=== PATIENT | female | born 1980 | race Caucasian/White ===

== ENCOUNTER 2017-06-18 12:45 | Emergency (ER) | payer MEDICARE, MEDICAID, SELFPAY | END 2017-06-18 14:36 | disposition home or self-care (01) | DX: H10.33 Unspecified acute conjunctivitis, bilateral (principal); J40 Bronchitis, not specified as acute or chronic; H66.001 Acute suppurative otitis media without spontaneous rupture of ear drum, right ear; Z88.0 Allergy status to penicillin | CPT/HCPCS: 71020; 99201 ==

== ENCOUNTER → 2018-07-21 17:49 | Outpatient (CLI) | payer MEDICARE, MEDICAID, SELFPAY ==
[2018-07-21 18:45] LABS: Basophils # 0.1 K/mm3 (0-0.2); Basophils % 0.6 % (0.1-2.0); Eosinophils # 0.2 K/mm3 (0.0-0.4); Eosinophils % 1.9 % (0.1-12.0); Hematocrit 40.4 % (37.0-47.0); Hemoglobin 12.3 g/dL (12.2-16.2); Lymphocytes % 31.4 % (10-50); Mean Corpuscular HGB Conc 30.4 g/dL (31.8-35.4); Mean Corpuscular Hemoglobin 26.1 pg (27.0-31.2); Mean Corpuscular Volume 85.8 fl (81-99); Mean Platelet Volume 9.3 fl (7.4-10.4); Monocytes # 0.4 K/mm3 (0.1-1.0); Neutrophils # 5.9 K/mm3 (1.8-7.8); Neutrophils % 62.1 % (37.0-80.0); Platelet Count 349 K/mm3 (142-424); Red Blood Count 4.72 M/mm3 (4.20-5.40); Red Cell Distribution Width 16.9 % (11.5-17.5); White Blood Count 9.5 K/mm3 (4.8-10.8)
[2018-07-21 18:50] LABS: Alanine Aminotransferase 18 U/L (12-78); Albumin Level 3.9 gm/dL (3.4-5.0); Albumin/Globulin Ratio 1.2 (1.1-1.8); Alkaline Phosphatase 109 U/L (46-116); Anion Gap 13.6 mEq/L (5-15); Aspartate Amino Transferase 12 U/L (15-37); Bilirubin,Total 0.2 mg/dL (0.2-1.0); Blood Urea Nitrogen 4 mg/dL (7-18); Calcium 8.8 mg/dL (8.5-10.1); Carbon Dioxide 28 mmol/L (21.0-32.0); Chloride 104 mmol/L (98-107); Chol/HDL Ratio 4.6 (1-3.5); Cholesterol 206 mg/dL (140-200); Creatinine,Serum 0.68 mg/dL (0.55-1.02); Estimated Glomerular Filt Rate 97 ml/min (>60); Free T4 (Free Thyroxine) 0.93 ng/dl (0.76-1.46); GFR (African American) 117 ML/MIN (>60); Globulin 3.3 gm/dl (1.3-3.2); Glucose 94 mg/dL (74-106); HDL Cholesterol 45 mg/dL (29-89); LDL Cholesterol 130 mg/dL (0-130); Potassium 3.6 mmoL/L (3.5-5.1); Sodium 142 mmol/L (136-145); Thyroid Stimulating Hormone 0.75 uIU/ml (0.358-3.740); Total Protein,Serum 7.2 gm/dL (6.4-8.2); Triglycerides 157 mg/dL (30-200); VLDL Cholesterol 31 mg/dL (0-40)
[2018-07-21 19:54] LABS: Amphetamine/Metha Screen,Urine Negative ng/mL (<1000); Barbiturates Screen,Urine Negative ng/mL (<200); Benzodiazepines Screen,Urine Negative ng/mL (<200); Cannabinoid Screen,Urine Negative ng/mL (<50); Cocaine Screen,Urine Negative ng/mL (<300); Methadone Screen,Urine Negative ng/mL (<300); Opiate Screen,Urine Negative ng/mL (<300); Phencyclidine Screen,Urine Negative ng/mL (<25)
[2018-07-24 08:22] LABS: Vitamin D 25 Hydroxy 15.5 ng/mL (30.0-100.0)
== END ==
PROVIDERS: Visit Provider Emergency Medicine
DX: R45.86 Emotional lability (principal); E78.49 Other hyperlipidemia; Z79.899 Other long term (current) drug therapy
CPT/HCPCS: 80053; 80061; 80305; 82652; 84439; 84443; 85025

== ENCOUNTER → 2018-08-04 07:52 | Outpatient (CLI) | payer MEDICARE, MEDICAID, SELFPAY ==
--- NOTE | 2018-08-04 07:54 | MR_ITS ---
MR lumbar spine wo con, MR 3-d myelogram/MRCP HISTORY: No back pain with bilateral leg pain and numbnessITS.REASON: back pain ORDERING PHYSICIAN: Vasiliy Vyas MD PATIENT AGE: 37 years Comparison: None TECHNIQUE: Standard multiplanar multiecho sequences are performed without contrast. 3-D MIP and myelographic images are also rendered and reviewed FINDINGS: There is normal alignment. The spinal cord ends at the L1 level. L1-L2, L2-L3 have an unremarkable appearance. L3-L4: There is mild concentric bulging disc L3-L4 there is mild bilateral lateral recess narrowing from bulging disc and mild facet and ligamentum hypertrophy L4-5: Mild broad-based bulging disc slightly eccentric toward the right with mild right-sided foraminal narrowing. L5-S1: Mild concentric bulging disc with minimal left paracentral disc protrusion the disc does abut the anteromedial aspect of both S1 nerve roots left more so than right without nerve root displacement. There is mild degenerative disc disease at this level. IMPRESSION 1. L3-L4: There is mild concentric bulging disc L3-L4 there is mild bilateral lateral recess narrowing from bulging disc and mild facet and ligamentum hypertrophy with mild degenerative disc disease 2. L4-5: Mild broad-based bulging disc slightly eccentric toward the right with mild right-sided foraminal narrowing with mild degenerative disc disease 3. L5-S1: Mild concentric bulging disc with minimal left paracentral disc protrusion the disc does abut the anteromedial aspect of both S1 nerve roots left more so than right without nerve root displacement. There is mild degenerative disc disease at this level 4. No extruded herniated disc or canal stenosis
== END ==
PROVIDERS: PCP Emergency Medicine; Visit Provider Emergency Medicine
DX: M54.9 Dorsalgia, unspecified (principal); M54.5 Low back pain
CPT/HCPCS: 72148; 76376; 80305

== ENCOUNTER → 2018-08-04 14:35 | Outpatient (CLI) | payer MEDICARE, MEDICAID, SELFPAY ==
[2018-08-04 15:36] LABS: Amphetamine/Metha Screen,Urine Negative ng/mL (<1000); Barbiturates Screen,Urine Negative ng/mL (<200); Benzodiazepines Screen,Urine Negative ng/mL (<200); Cannabinoid Screen,Urine Negative ng/mL (<50); Cocaine Screen,Urine Negative ng/mL (<300); Methadone Screen,Urine Negative ng/mL (<300); Opiate Screen,Urine Positive ng/mL (<300); Phencyclidine Screen,Urine Negative ng/mL (<25)
== END ==
PROVIDERS: Visit Provider Nurse Practitioner Family
DX: Z79.899 Other long term (current) drug therapy (principal)
CPT/HCPCS: 80305

== ENCOUNTER → 2018-09-15 13:24 | Outpatient (CLI) | payer MEDICARE, MEDICAID, SELFPAY ==
[2018-09-15 14:21] LABS: Amphetamine/Metha Screen,Urine Negative ng/mL (<1000); Barbiturates Screen,Urine Negative ng/mL (<200); Benzodiazepines Screen,Urine Negative ng/mL (<200); Cannabinoid Screen,Urine Negative ng/mL (<50); Cocaine Screen,Urine Negative ng/mL (<300); Methadone Screen,Urine Negative ng/mL (<300); Opiate Screen,Urine Positive ng/mL (<300); Phencyclidine Screen,Urine Negative ng/mL (<25)
== END ==
PROVIDERS: Visit Provider Emergency Medicine
DX: M51.36 Other intervertebral disc degeneration, lumbar region (principal)
CPT/HCPCS: 80305

== ENCOUNTER → 2018-09-21 14:07 | Outpatient (POV) | payer MEDICARE, MEDICAID, SELFPAY | PROVIDERS: Visit Provider Neurological Surgery | DX: Z00.00 Encounter for general adult medical examination without abnormal findings (principal) ==

== ENCOUNTER → 2018-11-14 14:15 | Outpatient (CLI) | payer MEDICARE, MEDICAID, SELFPAY ==
[2018-11-14 16:02] LABS: Amphetamine/Metha Screen,Urine Negative ng/mL (<1000); Barbiturates Screen,Urine Negative ng/mL (<200); Benzodiazepines Screen,Urine Negative ng/mL (<200); Cannabinoid Screen,Urine Negative ng/mL (<50); Cocaine Screen,Urine Negative ng/mL (<300); Methadone Screen,Urine Negative ng/mL (<300); Opiate Screen,Urine Negative ng/mL (<300); Phencyclidine Screen,Urine Negative ng/mL (<25)
[2018-11-22 10:05] LABS: Opiates Negative ng/mL (Cutoff=100)
== END ==
PROVIDERS: Visit Provider Emergency Medicine
DX: Z79.899 Other long term (current) drug therapy (principal)
CPT/HCPCS: 80305; 80361; G0480

== ENCOUNTER → 2019-01-17 18:04 | Outpatient (CLI) | payer MEDICARE, MEDICAID, SELFPAY ==
[2019-01-17 19:07] LABS: Amphetamine/Metha Screen,Urine Negative ng/mL (<1000); Barbiturates Screen,Urine Negative ng/mL (<200); Benzodiazepines Screen,Urine Negative ng/mL (<200); Cannabinoid Screen,Urine Negative ng/mL (<50); Cocaine Screen,Urine Negative ng/mL (<300); Methadone Screen,Urine Negative ng/mL (<300); Opiate Screen,Urine Negative ng/mL (<300); Phencyclidine Screen,Urine Negative ng/mL (<25)
[2019-01-25 08:15] LABS: Opiates Negative (Cutoff=100)
== END ==
PROVIDERS: Visit Provider Emergency Medicine
DX: M51.36 Other intervertebral disc degeneration, lumbar region (principal); Z79.899 Other long term (current) drug therapy
CPT/HCPCS: 80305; 80361; 80365; G0480

== ENCOUNTER → 2019-03-07 17:55 | Outpatient (CLI) | payer MEDICARE, MEDICAID, SELFPAY ==
[2019-03-07 19:58] LABS: Amphetamine/Metha Screen,Urine Negative ng/mL (<1000); Barbiturates Screen,Urine Negative ng/mL (<200); Benzodiazepines Screen,Urine Negative ng/mL (<200); Cannabinoid Screen,Urine Negative ng/mL (<50); Cocaine Screen,Urine Negative ng/mL (<300); Methadone Screen,Urine Negative ng/mL (<300); Opiate Screen,Urine Positive ng/mL (<300); Phencyclidine Screen,Urine Negative ng/mL (<25)
== END ==
PROVIDERS: Visit Provider Emergency Medicine
DX: M51.36 Other intervertebral disc degeneration, lumbar region (principal)
CPT/HCPCS: 80305

== ENCOUNTER → 2019-05-02 18:07 | Outpatient (CLI) | payer MEDICARE, MEDICAID, SELFPAY ==
[2019-05-02 18:56] LABS: Amphetamine/Metha Screen,Urine Negative ng/mL (<1000); Barbiturates Screen,Urine Negative ng/mL (<200); Benzodiazepines Screen,Urine Negative ng/mL (<200); Cannabinoid Screen,Urine Negative ng/mL (<50); Cocaine Screen,Urine Negative ng/mL (<300); Methadone Screen,Urine Negative ng/mL (<300); Opiate Screen,Urine Positive ng/mL (<300); Phencyclidine Screen,Urine Negative ng/mL (<25)
== END ==
PROVIDERS: Visit Provider Emergency Medicine
DX: M51.36 Other intervertebral disc degeneration, lumbar region (principal)
CPT/HCPCS: 80305

== ENCOUNTER → 2019-06-19 13:52 | Outpatient (CLI) | payer MEDICARE, SELFPAY ==
[2019-06-19 16:52] LABS: Amphetamine/Metha Screen,Urine Negative ng/mL (<1000); Barbiturates Screen,Urine Negative ng/mL (<200); Benzodiazepines Screen,Urine Negative ng/mL (<200); Cannabinoid Screen,Urine Negative ng/mL (<50); Cocaine Screen,Urine Negative ng/mL (<300); Methadone Screen,Urine Negative ng/mL (<300); Opiate Screen,Urine Positive ng/mL (<300); Phencyclidine Screen,Urine Negative ng/mL (<25)
== END ==
PROVIDERS: Visit Provider Emergency Medicine
DX: M51.36 Other intervertebral disc degeneration, lumbar region (principal)
CPT/HCPCS: 80305

== ENCOUNTER → 2019-08-07 18:16 | Outpatient (CLI) | payer MEDICARE, MEDICAID, SELFPAY ==
[2019-08-07 20:04] LABS: Amphetamine/Metha Screen,Urine Negative ng/mL (<1000); Barbiturates Screen,Urine Negative ng/mL (<200); Benzodiazepines Screen,Urine Negative ng/mL (<200); Cannabinoid Screen,Urine Negative ng/mL (<50); Cocaine Screen,Urine Negative ng/mL (<300); Methadone Screen,Urine Negative ng/mL (<300); Opiate Screen,Urine Positive ng/mL (<300); Phencyclidine Screen,Urine Negative ng/mL (<25)
== END ==
PROVIDERS: Visit Provider Emergency Medicine
DX: R30.0 Dysuria (principal); M51.36 Other intervertebral disc degeneration, lumbar region
CPT/HCPCS: 80305; 87086

== ENCOUNTER → 2020-01-11 08:53 | Outpatient (CLI) | payer MEDICARE, MEDICAID, SELFPAY ==
--- NOTE | 2020-01-11 08:55 | MM_ITS ---
PROCEDURE: MM DIG SCREENING MAMM BI W/CAD DIGITAL BREAST TOMOSYNTHESIS INCLUDED Patient Age:39Y CLINICAL INDICATION: screening Baseline mammogram. 39-year-old pre menopausal female. No hormones, no new complaints. Family history: Paternal aunt and paternal uncle with breast cancer COMPARISON: Baseline exam no exams were available for comparison TECHNIQUE: Standard CC and MLO images were obtained. R2 CAD reviewed. Bilateral digital breast tomosynthesis included. Additional axillary CC view bilaterally the FINDINGS: Baseline study with no previous for comparison. Dense breast tissue bilaterally decreases sensitivity of mammography although tomosynthesis is of benefit in better evaluating dense breast. Satisfactory architecture and distribution of the dense fibroglandular elements most evident towards superior breast. No dominant or suspicious mass on the combination of images. No suspicious calcifications Right breast:. Satisfactory, with no areas of significant concern. Left breast: Satisfactory with no areas of significant concern IMPRESSION: . No areas of significant concern on this baseline mammogram . Fairly dense slight heterogeneous breast overall appears satisfactory after reviewing all images Bilateral follow-up 1 year recommended and encouraged-to further confirm and establish this as baseline BI-RAD Category: 2 Benign Finding(s) FOLLOW-UP: 1YR 1 Year Follow-up (A letter has been sent to the patient regarding results of the study.) Dictated by: Donta Wren MD 01/12/2020 08:58 Electronically signed by Donta Wren MD in [place] 01/12/2020 08:58
== END ==
PROVIDERS: PCP Emergency Medicine; Visit Provider Emergency Medicine
DX: Z12.31 Encounter for screening mammogram for malignant neoplasm of breast (principal)
CPT/HCPCS: 77063; 77067

== ENCOUNTER → 2020-05-27 14:27 | Outpatient (CLI) | payer MEDICARE, MEDICAID, SELFPAY ==
[2020-06-02 11:56] LABS: Chloride 103 mmol/L (98-107); Potassium 4.5 mmoL/L (3.5-5.1); Sodium 139 mmol/L (136-145)
[2020-06-02 11:58] LABS: Alanine Aminotransferase 12 U/L (12-78); Alkaline Phosphatase 79 U/L (38-126); Aspartate Amino Transferase 22 U/L (14-36); Bilirubin,Total 0.4 mg/dl (0.2-1.3); Blood Urea Nitrogen 6 mg/dl (7-17); Estimated Glomerular Filt Rate 111 ml/min (>60); GFR (African American) 134 ML/MIN (>60)
[2020-06-02 11:59] LABS: Albumin Level 4.5 g/dl (3.5-5.0); Albumin/Globulin Ratio 1.7 (1.1-1.8); Anion Gap 12.5 mEq/L (5-15); Calcium 10.1 mg/dl (8.4-10.2); Carbon Dioxide 28 mmol/L (22.0-30.0); Chol/HDL Ratio 3.8 (1-3.5); Cholesterol 177 mg/dl (140-200); Globulin 2.7 g/dL (1.3-3.2); Glucose 85 mg/dl (74-100); HDL Cholesterol 46 mg/dl (40-60); Total Protein,Serum 7.2 g/dl (6.3-8.2); Triglycerides 119 mg/dl (30-150); VLDL Cholesterol 24 mg/dL (0-40)
[2020-06-02 12:11] LABS: Direct LDL Cholesterol 107.15 mg/dL (100-129)
[2020-06-02 12:16] LABS: 25-OH Vitamin D, Total 21.2 ng/mL (30-100); Free T4 (Free Thyroxine) 1.17 ng/dl (0.78-2.19)
[2020-06-02 12:31] LABS: Thyroid Stimulating Hormone 1.44 uIU/mL (0.465-4.68)
[2020-06-02 12:32] LABS: White Blood Count 10.2 K/mm3 (4.8-10.8)
[2020-06-02 12:33] LABS: Hemoglobin 13.8 g/dL (12.2-16.2); Lymphocytes % 33.7 % (10-50); Mean Corpuscular HGB Conc 30.7 g/dL (31.8-35.4); Monocytes % 3.4 % (1.7-9.3); Neutrophils % 60.5 % (37.0-80.0); Platelet Count 337 K/mm3 (142-424); Red Blood Count 4.94 M/mm3 (4.20-5.40); Red Cell Distribution Width 17.3 % (11.5-17.5)
[2020-06-02 12:34] LABS: Basophils # 0.1 K/mm3 (0-0.2); Eosinophils # 0.1 K/mm3 (0.0-0.4); Eosinophils % 1.3 % (0.1-12.0); Lymphocytes # 3.4 K/mm3 (0.7-4.5); Monocytes # 0.4 K/mm3 (0.1-1.0); Neutrophils # 6.2 K/mm3 (1.8-7.8)
== END ==
PROVIDERS: Visit Provider Emergency Medicine
DX: E66.3 Overweight (principal); R53.83 Other fatigue; E55.9 Vitamin D deficiency, unspecified
CPT/HCPCS: 80053; 80061; 82306; 84439; 84443; 85025

== ENCOUNTER → 2020-07-25 15:29 | Outpatient (CLI) | payer MEDICARE, MEDICAID, SELFPAY ==
[2020-07-28 20:42] LABS: Amphetamine/Metha Screen,Urine Negative ng/ml (<1000); Barbiturates Screen,Urine Negative ng/ml (<200)
[2020-07-28 20:43] LABS: Benzodiazepines Screen,Urine Negative ng/ml (<200)
[2020-07-28 20:44] LABS: Cannabinoid Screen,Urine Negative ng/ml (<50); Cocaine Screen,Urine Negative ng/ml (<300)
[2020-07-28 20:45] LABS: Methadone Screen,Urine Negative ng/ml (<300)
[2020-07-28 20:46] LABS: Opiate Screen,Urine Positive ng/ml (<300); Phencyclidine Screen,Urine Negative ng/ml (<25)
== END ==
PROVIDERS: Visit Provider Emergency Medicine
DX: M51.36 Other intervertebral disc degeneration, lumbar region (principal); Z79.899 Other long term (current) drug therapy
CPT/HCPCS: 80305

== ENCOUNTER → 2020-09-19 14:11 | Outpatient (CLI) | payer MEDICARE, MEDICAID, SELFPAY ==
[2020-09-19 17:09] LABS: Amphetamine/Metha Screen,Urine Negative ng/ml (<1000)
[2020-09-19 17:10] LABS: Barbiturates Screen,Urine Negative ng/ml (<200)
[2020-09-19 17:11] LABS: Benzodiazepines Screen,Urine Negative ng/ml (<200); Cannabinoid Screen,Urine Negative ng/ml (<50)
[2020-09-19 17:12] LABS: Cocaine Screen,Urine Negative ng/ml (<300); Methadone Screen,Urine Negative ng/ml (<300)
[2020-09-19 17:13] LABS: Opiate Screen,Urine Positive ng/ml (<300)
[2020-09-19 17:14] LABS: Phencyclidine Screen,Urine Negative ng/ml (<25)
== END ==
PROVIDERS: Visit Provider Emergency Medicine
DX: M54.5 Low back pain (principal)
CPT/HCPCS: 80305

== ENCOUNTER → 2020-11-14 14:29 | Outpatient (CLI) | payer MEDICARE, MEDICAID, SELFPAY ==
[2020-11-14 16:28] LABS: Amphetamine/Metha Screen,Urine Negative ng/ml (<1000)
[2020-11-14 16:29] LABS: Barbiturates Screen,Urine Negative ng/ml (<200)
[2020-11-14 16:30] LABS: Benzodiazepines Screen,Urine Negative ng/ml (<200)
[2020-11-14 16:31] LABS: Cannabinoid Screen,Urine Negative ng/ml (<50); Cocaine Screen,Urine Negative ng/ml (<300)
[2020-11-14 16:32] LABS: Methadone Screen,Urine Negative ng/ml (<300)
[2020-11-14 16:33] LABS: Opiate Screen,Urine Positive ng/ml (<300); Phencyclidine Screen,Urine Negative ng/ml (<25)
== END ==
PROVIDERS: Visit Provider Emergency Medicine
DX: M51.36 Other intervertebral disc degeneration, lumbar region (principal)
CPT/HCPCS: 80305

== ENCOUNTER → 2021-01-12 15:32 | Outpatient (CLI) | payer MEDICARE, MEDICAID, SELFPAY ==
[2021-01-12 17:23] LABS: Amphetamine/Metha Screen,Urine Negative ng/ml (<1000); Benzodiazepines Screen,Urine Negative ng/ml (<200)
[2021-01-12 17:24] LABS: Barbiturates Screen,Urine Negative ng/ml (<200)
[2021-01-12 17:25] LABS: Cannabinoid Screen,Urine Negative ng/ml (<50); Methadone Screen,Urine Negative ng/ml (<300)
[2021-01-12 17:26] LABS: Cocaine Screen,Urine Negative ng/ml (<300)
[2021-01-12 17:27] LABS: Opiate Screen,Urine Positive ng/ml (<300)
[2021-01-12 17:30] LABS: Phencyclidine Screen,Urine Negative ng/ml (<25)
== END ==
PROVIDERS: Visit Provider Emergency Medicine
DX: M51.36 Other intervertebral disc degeneration, lumbar region (principal)
CPT/HCPCS: 80305

== ENCOUNTER → 2021-03-10 14:22 | Outpatient (CLI) | payer MEDICARE, MEDICAID, SELFPAY ==
[2021-03-10 16:29] LABS: Amphetamine/Metha Screen,Urine Negative ng/ml (<1000); Barbiturates Screen,Urine Negative ng/ml (<200)
[2021-03-10 16:30] LABS: Benzodiazepines Screen,Urine Negative ng/ml (<200)
[2021-03-10 16:31] LABS: Cannabinoid Screen,Urine Negative ng/ml (<50); Cocaine Screen,Urine Negative ng/ml (<300)
[2021-03-10 16:32] LABS: Methadone Screen,Urine Negative ng/ml (<300)
[2021-03-10 16:33] LABS: Opiate Screen,Urine Negative ng/ml (<300)
[2021-03-10 16:34] LABS: Phencyclidine Screen,Urine Negative ng/ml (<25)
== END ==
PROVIDERS: Visit Provider Emergency Medicine
DX: M51.36 Other intervertebral disc degeneration, lumbar region (principal)
CPT/HCPCS: 80305

== ENCOUNTER → 2021-05-08 14:31 | Outpatient (CLI) | payer MEDICARE, MEDICAID, SELFPAY ==
[2021-05-08 16:16] LABS: Amphetamine/Metha Screen,Urine Negative ng/ml (<1000); Barbiturates Screen,Urine Negative ng/ml (<200)
[2021-05-08 16:17] LABS: Benzodiazepines Screen,Urine Negative ng/ml (<200); Cannabinoid Screen,Urine Negative ng/ml (<50)
[2021-05-08 16:18] LABS: Cocaine Screen,Urine Negative ng/ml (<300)
[2021-05-08 16:19] LABS: Methadone Screen,Urine Negative ng/ml (<300); Opiate Screen,Urine Positive ng/ml (<300)
[2021-05-08 16:20] LABS: Phencyclidine Screen,Urine Negative ng/ml (<25)
== END ==
PROVIDERS: Visit Provider Emergency Medicine
DX: M51.36 Other intervertebral disc degeneration, lumbar region (principal)
CPT/HCPCS: 80305

== ENCOUNTER → 2021-09-16 15:45 | Outpatient (CLI) | payer MEDICARE, MEDICAID, SELFPAY ==
[2021-09-16 16:20] LABS: Amphetamine/Metha Screen,Urine Negative ng/ml (<1000)
[2021-09-16 16:21] LABS: Barbiturates Screen,Urine Negative ng/ml (<200)
[2021-09-16 16:22] LABS: Benzodiazepines Screen,Urine Negative ng/ml (<200)
[2021-09-16 16:23] LABS: Cannabinoid Screen,Urine Negative ng/ml (<50)
[2021-09-16 16:24] LABS: Methadone Screen,Urine Negative ng/ml (<300)
[2021-09-16 16:25] LABS: Opiate Screen,Urine Positive ng/ml (<300)
[2021-09-16 16:26] LABS: Phencyclidine Screen,Urine Negative ng/ml (<25)
[2021-09-16 16:32] LABS: Cocaine Screen,Urine Negative ng/ml (<300)
== END ==
PROVIDERS: Visit Provider Emergency Medicine
DX: M51.36 Other intervertebral disc degeneration, lumbar region (principal)
CPT/HCPCS: 80305

== ENCOUNTER → 2021-11-11 16:00 | Outpatient (CLI) | payer MEDICARE, MEDICAID, SELFPAY ==
[2021-11-11 13:52] LABS: Amphetamine/Metha Screen,Urine Negative ng/ml (<1000)
[2021-11-11 13:53] LABS: Barbiturates Screen,Urine Negative ng/ml (<200)
[2021-11-11 13:54] LABS: Benzodiazepines Screen,Urine Negative ng/ml (<200); Cannabinoid Screen,Urine Negative ng/ml (<50)
[2021-11-11 13:55] LABS: Cocaine Screen,Urine Negative ng/ml (<300); Methadone Screen,Urine Negative ng/ml (<300)
[2021-11-11 13:56] LABS: Opiate Screen,Urine Positive ng/ml (<300)
[2021-11-11 13:57] LABS: Phencyclidine Screen,Urine Negative ng/ml (<25)
== END ==
PROVIDERS: Visit Provider Emergency Medicine
DX: R82.90 Unspecified abnormal findings in urine (principal); Z79.899 Other long term (current) drug therapy; B96.20 Unspecified Escherichia coli [E. coli] as the cause of diseases classified elsewhere
CPT/HCPCS: 80305; 87086; 87088; 87186

== ENCOUNTER → 2022-01-08 14:08 | Outpatient (CLI) | payer MEDICARE, MEDICAID, SELFPAY ==
[2022-01-08 13:48] LABS: Amphetamine/Metha Screen,Urine Negative ng/ml (<1000); Barbiturates Screen,Urine Negative ng/ml (<200)
[2022-01-08 13:49] LABS: Cocaine Screen,Urine Negative ng/ml (<300)
[2022-01-08 13:50] LABS: Benzodiazepines Screen,Urine Negative ng/ml (<200); Cannabinoid Screen,Urine Negative ng/ml (<50)
[2022-01-08 13:51] LABS: Methadone Screen,Urine Negative ng/ml (<300)
[2022-01-08 13:52] LABS: Opiate Screen,Urine Positive ng/ml (<300)
[2022-01-08 13:53] LABS: Phencyclidine Screen,Urine Negative ng/ml (<25)
== END ==
PROVIDERS: PCP Emergency Medicine; Visit Provider Emergency Medicine
DX: Z79.899 Other long term (current) drug therapy (principal)
CPT/HCPCS: 80305

== ENCOUNTER → 2022-03-09 08:26 | Outpatient (CLI) | payer MEDICARE, MEDICAID, SELFPAY ==
[2022-03-09 14:30] LABS: Amphetamine/Metha Screen,Urine Negative ng/ml (<1000)
[2022-03-09 14:31] LABS: Barbiturates Screen,Urine Negative ng/ml (<200); Benzodiazepines Screen,Urine Negative ng/ml (<200)
[2022-03-09 14:32] LABS: Cannabinoid Screen,Urine Negative ng/ml (<50)
[2022-03-09 14:33] LABS: Cocaine Screen,Urine Negative ng/ml (<300); Methadone Screen,Urine Negative ng/ml (<300)
[2022-03-09 14:34] LABS: Opiate Screen,Urine Positive ng/ml (<300)
[2022-03-09 14:35] LABS: Phencyclidine Screen,Urine Negative ng/ml (<25)
== END ==
PROVIDERS: PCP Emergency Medicine; Visit Provider Emergency Medicine
DX: Z79.899 Other long term (current) drug therapy (principal)
CPT/HCPCS: 80305

== ENCOUNTER → 2022-06-02 14:58 | Outpatient (CLI) | payer MEDICARE, MEDICAID, SELFPAY ==
[2022-06-02 15:30] LABS: Amphetamine/Metha Screen,Urine Negative ng/ml (<1000)
[2022-06-02 15:31] LABS: Barbiturates Screen,Urine Negative ng/ml (<200)
[2022-06-02 15:32] LABS: Benzodiazepines Screen,Urine Negative ng/ml (<200); Cannabinoid Screen,Urine Negative ng/ml (<50)
[2022-06-02 15:33] LABS: Cocaine Screen,Urine Negative ng/ml (<300); Methadone Screen,Urine Negative ng/ml (<300)
[2022-06-02 15:34] LABS: Opiate Screen,Urine Positive ng/ml (<300)
[2022-06-02 15:35] LABS: Phencyclidine Screen,Urine Negative ng/ml (<25)
== END ==
PROVIDERS: PCP Emergency Medicine; Visit Provider Emergency Medicine
DX: Z79.899 Other long term (current) drug therapy (principal)
CPT/HCPCS: 80305

== ENCOUNTER → 2022-07-30 14:38 | Outpatient (CLI) | payer MEDICARE, MEDICAID, SELFPAY ==
[2022-07-30 15:05] LABS: Basophils # 0.1 K/mm3 (0-0.2); Basophils % 1.1 % (0.1-2.0); Eosinophils # 0.1 K/mm3 (0.0-0.4); Eosinophils % 1.7 % (0.1-12.0); Hematocrit 42.7 % (37.0-47.0); Hemoglobin 13.4 g/dL (12.2-16.2); Lymphocytes # 3.4 K/mm3 (0.7-4.5); Lymphocytes % 40.2 % (10-50); Mean Corpuscular HGB Conc 31.4 g/dL (31.8-35.4); Mean Corpuscular Hemoglobin 27.6 pg (27.0-31.2); Mean Corpuscular Volume 87.8 fl (81-99); Mean Platelet Volume 10.4 fl (7.4-10.4); Monocytes # 0.3 K/mm3 (0.1-1.0); Monocytes % 4.1 % (1.7-9.3); Neutrophils # 4.4 K/mm3 (1.8-7.8); Neutrophils % 52.9 % (37.0-80.0); Platelet Count 331 K/mm3 (142-424); Red Blood Count 4.86 M/mm3 (4.20-5.40); Red Cell Distribution Width 16.2 % (11.5-17.5); White Blood Count 8.3 K/mm3 (4.8-10.8)
[2022-07-30 15:21] LABS: Alanine Aminotransferase 11 U/L (12-78); Albumin Level 4.5 g/dl (3.5-5.0); Albumin/Globulin Ratio 1.7 (1.1-1.8); Alkaline Phosphatase 79 U/L (38-126); Anion Gap 11.4 mEq/L (5-15); Aspartate Amino Transferase 22 U/L (14-36); Bilirubin,Total 0.3 mg/dl (0.2-1.3); Blood Urea Nitrogen 7 mg/dl (7-17); Calcium 9.2 mg/dl (8.4-10.2); Carbon Dioxide 29 mmol/L (22.0-30.0); Chloride 105 mmol/L (98-107); Chol/HDL Ratio 3.2 (1-3.5); Cholesterol 172 mg/dl (140-200); Estimated Glomerular Filt Rate 135 ml/min (>60); GFR (African American) 164 ML/MIN (>60); Globulin 2.6 g/dL (1.3-3.2); Glucose 77 mg/dl (74-100); HDL Cholesterol 53 mg/dl (40-60); Potassium 4.4 mmoL/L (3.5-5.1); Sodium 141 mmol/L (136-145); Total Protein,Serum 7.1 g/dl (6.3-8.2); Triglycerides 79 mg/dl (30-150); VLDL Cholesterol 16 mg/dL (0-40)
[2022-07-30 15:32] LABS: Direct LDL Cholesterol 99.12 mg/dL (100-129)
[2022-07-30 15:34] LABS: Benzodiazepines Screen,Urine Negative ng/ml (<200)
[2022-07-30 15:35] LABS: Amphetamine/Metha Screen,Urine Negative ng/ml (<1000)
[2022-07-30 15:36] LABS: Barbiturates Screen,Urine Negative ng/ml (<200); Cannabinoid Screen,Urine Negative ng/ml (<50)
[2022-07-30 15:37] LABS: Cocaine Screen,Urine Negative ng/ml (<300)
[2022-07-30 15:38] LABS: Methadone Screen,Urine Negative ng/ml (<300); Opiate Screen,Urine Positive ng/ml (<300)
[2022-07-30 15:38] LABS: Free T4 (Free Thyroxine) 1.02 ng/dl (0.78-2.19)
[2022-07-30 15:39] LABS: Phencyclidine Screen,Urine Negative ng/ml (<25)
[2022-07-30 15:51] LABS: Thyroid Stimulating Hormone 0.86 uIU/mL (0.465-4.68)
== END ==
PROVIDERS: PCP Emergency Medicine; Visit Provider Emergency Medicine
DX: Z79.899 Other long term (current) drug therapy (principal); E66.3 Overweight; E55.9 Vitamin D deficiency, unspecified
CPT/HCPCS: 80053; 80061; 80305; 82306; 84439; 84443; 85025

== ENCOUNTER → 2022-08-05 09:55 | Outpatient (CLI) | payer MEDICARE, MEDICAID, SELFPAY ==
--- NOTE | 2022-08-05 10:00 | MR_ITS ---
FINAL REPORT CLINICAL HISTORY: back pain. bilateral leg pain xyears. no injury or trauma COMPARISON: 08/04/2018 FINDINGS: Multiplanar MR imaging of the lumbar spine was performed without contrast. Motion artifact is identified on many of the images. On the sagittal T2-weighted images, disc degeneration is seen at multiple levels. There is mild retrolisthesis of L3 on 4. There is no evidence of fracture. The conus has an unremarkable appearance. T12-L1: There is no significant canal stenosis or neural foraminal narrowing. L1-2: There is no significant canal stenosis or neural foraminal narrowing. L2-3: There is no significant canal stenosis or neural foraminal narrowing. L3-4: There is a posterior midline annular tear and small central disc protrusion, stable. There is mild bilateral neural foraminal narrowing. L4-5: An annular bulge is present with mild bilateral neural foraminal narrowing. L5-S1: An annular bulge and facet arthropathy are present. There is a central disc protrusion, stable from previous. There is mild bilateral neural foraminal narrowing. IMPRESSION: Multilevel degenerative disc disease and spondylosis. Stable central disc protrusions at L3-4 and L5-S1. Reviewed, Interpreted and Dictated by Jorge Lizarraga III, MD Transcribed by Geri Weir Authenticated and [facility]
== END ==
PROVIDERS: PCP Emergency Medicine; Visit Provider Emergency Medicine
DX: M54.9 Dorsalgia, unspecified (principal); M54.50 Low back pain, unspecified
CPT/HCPCS: 72148; 76376

== ENCOUNTER 2022-11-07 21:47 | Emergency (ER) | payer MEDICARE, MEDICAID, SELFPAY ==
[2022-11-07 21:58] VITALS: BP 166/86; PULSE 94; RESP 16; TEMP 36.8; O2SAT 98; BMI 21.9
--- NOTE | 2022-11-07 22:16 | [facility].EDGENADL ---
Discharge Plan Disposition Patient Disposition: Home, Self-Care Condition: Good Prescriptions Prescriptions: New azithromycin 500 mg tablet See Rx Instructions .ROUTE .COMPLEX Qty: 6 0RF Rx Instructions: For 250 mg dose pack: take 500 mg today (day 1), then 250 mg for 4 days (days 2-5) No Action gabapentin 400 mg capsule 400 mg PO TID Qty: 90 1RF hydrocodone-acetaminophen 7.5-325 mg tablet 1 tab PO QID Qty: 120 0RF cholecalciferol (vitamin D3) 1,000 unit capsule 1,000 unit PO DAILY 90 Days Qty: 90 3RF Rx Instructions: administer with meals ergocalciferol (vitamin D2) 1,250 mcg (50,000 unit) capsule 1,250 mcg PO WEEKLY Qty: 5 2RF Referrals Follow up/Referrals: Vasiliy Vyas MD [Primary Care Provider] - See instructions Clinical Impressions Clinical Impression: Tobacco use, Bullous myringitis of left ear, Otitis media Instructions Patient Instructions: DI for Otitis Media (Middle Ear Infection)-Child Discharge ED Provider: Alfred Mccall Adult HPI General Chief complaint: Ear Stated complaint: Left ear infection Time Seen by Provider: 11/07/22 22:22 Mode of Arrival: Ambulatory Source of Information: Patient Limitations: No Limitations Description of Symptoms (Recalled from ER Triage Doc. by RN): Pt c/o left ear pain since Tuesday. States that the symptoms began as a mild head cold. History of Present Illness HPI narrative: left ear pain MD complaint: Left ear pain and decreased hearing Onset (ago): day(s) (1) Severity: moderate Related Data Previous Rx's Medication Instructions Recorded cholecalciferol (vitamin D3) 25 1,000 unit PO DAILY 90 days #90 07/25/18 mcg (1,000 unit) capsule caps ergocalciferol (vitamin D2) 1,250 1,250 mcg PO WEEKLY #5 caps 06/03/20 mcg (50,000 unit) capsule gabapentin 400 mg capsule 400 mg PO TID #90 caps 09/24/22 hydrocodone 7.5 mg-acetaminophen 1 tab PO QID pain #120 tabs 09/24/22 325 mg tablet azithromycin 500 mg tablet See Rx Instructions PO .COMPLEX #6 11/07/22 tabs Allergies Allergy/AdvReac Type Severity Reaction Status Date / Time Penicillins [PENICILLINS] Allergy Unknown Verified 09/24/22 10:42 [facility] Disclaimer: The information contained in this section may have been updated after the patient was seen, as this information can be updated by other users. Social History Smoking Status: Current every day smoker tobacco type: cigarettes packs per day: 1 alcohol intake: never substance use type: denies use current occupational status: disabled Travel in the last 8 weeks: None household members: spouse housing: house ROS Obtained: Yes Systems reviewed as appropriate & no additional complaints except as documented Constitutional Constitutional: Denies fever(s) ENT Ears, Nose, Mouth, and Throat: Reports otalgia, Reports nasal congestion and Reports nasal discharge Respiratory Respiratory: Reports cough Physical Exam General General appearance: alert and in no apparent distress Eye Eye exam: Present EOMI ENT ENT exam: Present other (Bulging of left ear with bulla) Respiratory Respiratory exam: Present normal lung sounds bilaterally Cardiovascular Cardiovascular exam: Present regular rate and normal rhythm Neurological Exam Neurological exam: Present alert and oriented X3 Skin Skin exam: Present warm and dry Medical Decision Making Jim Inquiry Pt receiving controlled substance: No Vital Signs: 11/07/22 21:58 11/07/22 22:29 Temperature 98.3 F 98 F Temperature Source Oral Oral Pulse Rate 95 H Pulse Rate [Apical] 94 H Respiratory Rate 16 18 Blood Pressure 165/85 H Blood Pressure [Right Arm] 166/86 H Blood Pressure Mean [Right Arm] 112 Blood Pressure Source Automatic Cuff Blood Pressure Source [Right Arm] Automatic Cuff Blood Pressure Position Sitting Blood Pressure Position [Right Arm] Sitting 02 Sat b
--- NOTE | 2022-11-07 22:17 | PC.NURSE ---
Dr. Mccall at [facility]
[2022-11-07 22:29] VITALS: BP 165/85; PULSE 95; RESP 18; TEMP 36.6; O2SAT 99
== END 2022-11-07 22:36 | disposition home or self-care (01) ==
PROVIDERS: Emergency Provider Emergency Medicine; PCP Emergency Medicine
DX: H73.012 Bullous myringitis, left ear (principal); F17.210 Nicotine dependence, cigarettes, uncomplicated
CPT/HCPCS: 99283; 99284

== ENCOUNTER → 2022-11-19 10:22 | Outpatient (CLI) | payer MEDICARE, MEDICAID, SELFPAY ==
[2022-11-19 15:10] LABS: Amphetamine/Metha Screen,Urine Negative ng/ml (<1000)
[2022-11-19 15:12] LABS: Barbiturates Screen,Urine Negative ng/ml (<200)
[2022-11-19 15:13] LABS: Benzodiazepines Screen,Urine Negative ng/ml (<200); Cannabinoid Screen,Urine Negative ng/ml (<50)
[2022-11-19 15:14] LABS: Cocaine Screen,Urine Negative ng/ml (<300)
[2022-11-19 15:15] LABS: Methadone Screen,Urine Negative ng/ml (<300); Opiate Screen,Urine Positive ng/ml (<300)
[2022-11-19 15:16] LABS: Phencyclidine Screen,Urine Negative ng/ml (<25)
== END ==
PROVIDERS: PCP Emergency Medicine; Visit Provider Emergency Medicine
DX: Z79.899 Other long term (current) drug therapy (principal)
CPT/HCPCS: 80305

== ENCOUNTER → 2023-01-17 14:35 | Outpatient (CLI) | payer MEDICARE, MEDICAID, SELFPAY ==
[2023-01-17 19:47] LABS: Amphetamine/Metha Screen,Urine Negative ng/ml (<1000); Barbiturates Screen,Urine Negative ng/ml (<200)
[2023-01-17 19:48] LABS: Cannabinoid Screen,Urine Negative ng/ml (<50); Methadone Screen,Urine Negative ng/ml (<300)
[2023-01-17 19:49] LABS: Cocaine Screen,Urine Negative ng/ml (<300)
[2023-01-17 20:10] LABS: Benzodiazepines Screen,Urine Negative ng/ml (<200)
[2023-01-17 20:23] LABS: Opiate Screen,Urine Positive ng/ml (<300); Phencyclidine Screen,Urine Negative ng/ml (<25)
== END ==
PROVIDERS: PCP Emergency Medicine; Visit Provider Emergency Medicine
DX: Z79.899 Other long term (current) drug therapy (principal)
CPT/HCPCS: 80305

== ENCOUNTER → 2023-03-16 12:00 | Outpatient (CLI) | payer MEDICARE, MEDICAID, SELFPAY ==
[2023-03-16 20:32] LABS: Amphetamine/Metha Screen,Urine Negative ng/ml (<1000); Barbiturates Screen,Urine Negative ng/ml (<200)
[2023-03-16 20:37] LABS: Benzodiazepines Screen,Urine Negative ng/ml (<200)
[2023-03-16 20:38] LABS: Cannabinoid Screen,Urine Negative ng/ml (<50)
[2023-03-16 20:39] LABS: Cocaine Screen,Urine Negative ng/ml (<300); Methadone Screen,Urine Negative ng/ml (<300)
[2023-03-16 20:40] LABS: Opiate Screen,Urine Negative ng/ml (<300)
[2023-03-16 20:41] LABS: Phencyclidine Screen,Urine Negative ng/ml (<25)
== END ==
PROVIDERS: PCP Emergency Medicine; Visit Provider Emergency Medicine
DX: Z79.899 Other long term (current) drug therapy (principal)
CPT/HCPCS: 80305

== ENCOUNTER → 2023-05-13 15:26 | Outpatient (CLI) | payer MEDICARE, MEDICAID, SELFPAY ==
[2023-05-13 16:07] LABS: Amphetamine/Metha Screen,Urine Negative ng/ml (<1000)
[2023-05-13 16:08] LABS: Barbiturates Screen,Urine Negative ng/ml (<200)
[2023-05-13 16:09] LABS: Benzodiazepines Screen,Urine Negative ng/ml (<200); Cannabinoid Screen,Urine Negative ng/ml (<50)
[2023-05-13 16:10] LABS: Cocaine Screen,Urine Negative ng/ml (<300)
[2023-05-13 16:11] LABS: Methadone Screen,Urine Positive ng/ml (<300); Opiate Screen,Urine Positive ng/ml (<300)
[2023-05-13 16:12] LABS: Phencyclidine Screen,Urine Negative ng/ml (<25)
== END ==
PROVIDERS: PCP Emergency Medicine; Visit Provider Emergency Medicine
DX: Z79.899 Other long term (current) drug therapy (principal)
CPT/HCPCS: 80305

== ENCOUNTER → 2023-05-17 15:06 | Outpatient (CLI) | payer MEDICARE, MEDICAID, SELFPAY ==
[2023-05-17 13:33] LABS: Amphetamine/Metha Screen,Urine Negative ng/ml (<1000)
[2023-05-17 13:34] LABS: Barbiturates Screen,Urine Negative ng/ml (<200); Benzodiazepines Screen,Urine Negative ng/ml (<200)
[2023-05-17 13:35] LABS: Cannabinoid Screen,Urine Negative ng/ml (<50)
[2023-05-17 13:36] LABS: Cocaine Screen,Urine Negative ng/ml (<300); Methadone Screen,Urine Negative ng/ml (<300)
[2023-05-17 13:37] LABS: Opiate Screen,Urine Positive ng/ml (<300)
[2023-05-17 13:38] LABS: Phencyclidine Screen,Urine Negative ng/ml (<25)
== END ==
PROVIDERS: PCP Emergency Medicine; Visit Provider Emergency Medicine
DX: Z79.899 Other long term (current) drug therapy (principal)
CPT/HCPCS: 80305

== ENCOUNTER → 2023-06-22 23:21 | Outpatient (CLI) | payer MEDICARE, MEDICAID, SELFPAY ==
[2023-06-22 20:15] LABS: Amphetamine/Metha Screen,Urine Negative ng/ml (<1000); Cocaine Screen,Urine Negative ng/ml (<300)
[2023-06-22 20:16] LABS: Benzodiazepines Screen,Urine Negative ng/ml (<200)
[2023-06-22 20:17] LABS: Cannabinoid Screen,Urine Negative ng/ml (<50); Phencyclidine Screen,Urine Negative ng/ml (<25)
[2023-06-22 20:18] LABS: Methadone Screen,Urine Negative ng/ml (<300); Opiate Screen,Urine Negative ng/ml (<300)
[2023-06-22 20:22] LABS: Barbiturates Screen,Urine Negative ng/ml (<200)
[2023-06-30 16:17] LABS: Gabapentin,Urine Negative (.)
== END ==
LOC: LAB.DROPOF 23:21
PROVIDERS: Visit Provider Family Medicine
DX: Z79.899 Other long term (current) drug therapy (principal)
CPT/HCPCS: 80305; 80307

== ENCOUNTER → 2023-06-24 13:34 | Outpatient (CLI) | payer MEDICARE, MEDICAID, SELFPAY | LOC: LAB.DROPOF 06-29 13:34 | PROVIDERS: PCP Family Medicine; Visit Provider Family Medicine | DX: Z79.899 Other long term (current) drug therapy (principal) | CPT/HCPCS: 80307; 80361; G0480 ==